=== PATIENT | male | born 1990 | race Two or more races ===

== ENCOUNTER 2019-08-20 05:01 | Day surgery (SDC) | payer BC, MEDICAID ==
[~2019-08-20] VITALS: Ht 167.6 cm; Wt 86.6 kg
[2019-08-20 05:30] VITALS: BP 142/99
[2019-08-20 06:24] LABS: BASOPHILS # (AUTO) 0.1 /CMM (0.0-0.2); BASOPHILS % (AUTO) 0.6 % (0.0-2.0); EOSINOPHILS % (AUTO) 2.5 % (0.0-6.0); HEMATOCRIT 46 % (39-51); HEMOGLOBIN 15.8 g/dL (13.5-17.5); LYMPHOCYTES # (AUTO) 2.4 /CMM (0.8-4.8); LYMPHOCYTES % (AUTO) 28.2 % (20.0-44.0); MEAN CORPUSCULAR HGB CONC 34 g/dl (31.0-36.0); MEAN CORPUSCULAR VOLUME 87 fL (80-96); MONOCYTES # (AUTO) 0.7 /CMM (0.1-1.30); MONOCYTES % (AUTO) 8.3 % (2.0-12.0); NEUTROPHILS # (AUTO) 5.1 /CMM (1.8-8.9); NEUTROPHILS % (AUTO) 60.4 % (43.0-81.0); PLATELET COUNT (AUTO) 245 /CMM (150-450); RED BLOOD CELL COUNT(AUTO) 5.34 MIL/uL (4.5-6.0); WHITE BLOOD COUNT (AUTO) 8.5 K/uL (4.3-11.0)
--- NOTE | 2019-08-20 06:35 | NUR ---
RN Notes Admitted patient from home for scheduled surgery at 0700, ORIF of left long finger proximal phalanx fracture. Patient alert and oriented x4. Vital signs stable, afebrile. NPO since last night at 1900. Denies any pain and discomfort. Unable to assess left hand, covered with dressing. Peripheral IV started on right forearm with gauge 18 with good blood return. Plan of care discussed with the patient and verbalized understanding. Picked up for OR in stable condition. Will endorse accordingly.
[2019-08-20 06:37] LABS: APPEARANCE,URINE SL CLOUDY (CLEAR); BILIRUBIN,URINE NEGATIVE (NEGATIVE); BLOOD, URINE TRACE Ery/uL (NEGATIVE); COLOR,URINE YELLOW (YELLOW); KETONES,URINE NEGATIVE (NEGATIVE); LEUKOCYTE ESTERASE ,URINE NEGATIVE (NEGATIVE); NITRITE, URINE NEGATIVE (NEGATIVE); PROTEIN,URINE NEGATIVE (NEGATIVE); UGLUCOSE NEGATIVE (NEGATIVE); UROBILINOGEN,URINE 0.2 EU/dL (0.2)
[2019-08-20 06:42] LABS: ALBUMIN 4.3 g/dL (3.4-5.0); BILIRUBIN,TOTAL 0.5 mg/dL (0.2-1.0); CALCIUM, SERUM 8.8 mg/dL (8.5-10.1); CREATININE 0.9 mg/dL (0.6-1.3); POTASSIUM 3.6 mmol/L (3.5-5.1); TOTAL PROTEIN, SERUM 7.9 g/dL (6.4-8.2)
[2019-08-20] MEDS ORDERED: ANESTHESIA TRAY IN PYXIS 1 EA TRAY MC ONE (06:49)
[2019-08-20] MEDS ORDERED: LIDOCAINE HCL/PF 1% 30 ML SDV ONE (06:49)
[2019-08-20] MEDS ORDERED: BACITRACIN 50000 UNITS/VIAL ONE (06:49)
[2019-08-20] MEDS ORDERED: MIDAZOLAM HCL 2 MG/2ML VIAL ONE (06:56)
[2019-08-20] MEDS ORDERED: HYDROMORPHONE INJ 2 MG/ML DISP.SYRIN ONE (06:56)
[2019-08-20 07:11] LABS: BACTERIA,URINE Few /HPF (None Seen); SQUAMOUS EPITHELIAL CELL,UR Rare /HPF (None Seen)
[2019-08-20 07:12] LABS: RBC,URINE 0-2 /HPF (0-2)
[2019-08-20] MEDS ORDERED: LABETALOL HCL IV 100MG VIAL ONE (07:59)
[2019-08-20 09:00] VITALS: BP 164/100
--- NOTE | 2019-08-20 09:15 | NUR ---
MS RN NOTES RECEIVED PT FROM RECOVERY. PT A/O X4. PT TOLERATING RA, WITH NO ACUTE RESPIRATORY DISTRESS NOTED. PT HAS DRESSING TO LEFT HAND, DRY AND INTACT. PER RR NURSE THEY REINFORCED IT DUE TO BLOOD FROM THE DREESING AND SURGEON/DR PANG WAS AWARE AND OKAY WITH IT. ICE PACK IS APPLIED AND HAND KEPT ELEVATED. PT DENIES ANY PAIN OR DISCOMFORT AT THE MOMENT. PT KEPT COMFORTABLE. CALL LIGHT KEPT WITHIN REACH. PT'S BED IN LOWEST, LOCKED POSITION WITH SRX3. WILL CONTINUE TO MONITOR. VS RECORDED.
[2019-08-20] MEDS ORDERED: ERGO500040 PO (10:24)
[2019-08-20] MEDS ORDERED: AMLO5TAB9 PO (10:24)
[2019-08-20] MEDS ORDERED: ATOR20TA PO (10:24)
--- NOTE | 2019-08-20 10:30 | NUR ---
MS RN NOTES HOSPITALIST/LW MADE AWARE OF PT'S SITUATION. MD/BIRD PAGED REGARDING BP RESULT. NO RESPONSE UP TO THIS MOMENT. LEATHER SEASONER/COURY MADE AWARE AND GOT ORDERS. WILL CONTINUE TO MONITOR.
[2019-08-20] MEDS ORDERED: HYDROCODONE/APAP 10/325MG 1 EA TABLET PO PRN (11:00)
[2019-08-20] MEDS ORDERED: HYDROCODONE/APAP 5/325MG 1 EACH TABLET PO PRN (11:00)
[2019-08-20] MEDS ORDERED: AMLODIPINE BESYLATE 5 MG TABLET PO ONE (11:00)
[2019-08-20 11:12] VITALS: BP 160/100
--- NOTE | 2019-08-20 14:48 | NUR ---
MS BORDER PATROL AGENT NOTES PT TO DISCHARGE HOME. PT A/OX4, AMBULATORY. PT TOLERATING RA, WITH NO ACUTE RESPIRATORY DISTRESS NOTED. PT DENIES ANY PAIN OR DISCOMFORT AT THE TIME OF DISCHARGE. PT'S BP STABILIZED AND RECORDED. PT DENIES ANY CONCERN AND QUESTIONS AT THE TIME WELL. PT PROVIDED 'S OFFICE NUMBER FOR FOLLOW UP. DISCHARGE INSTRUCTIONS REVIEWED AND SIGNED BY PT. ALL BELONGINGS WITH THE PT, INVENTORY LIST SIGNED WELL. NO PRESCRIPTIONS GIVEN, PER PT HE HAD ONE THAT HE THINKS HE LOST IT.MARIA L/[facility] MADE AWARE AND ADVISED JUST TO CALL THEIR OFFICE FOR PRESCRIPTION. DRESSING TO LEFT HAND, REINFORCED, DRY AND INTACT. PIV TO RFA G18, REMOVED. ALL NEEDS AND CARE PROVIDED. PT LEFT THE UNIT AT 1445, AMBULATORY WITH MOTHER.
== END 2019-08-20 14:00 | disposition home or self-care (01) ==
LOC: DS 05:01 → UNDOADMIN 05:03 → MED 05:03 → DS 14:00 → UNDODISIN 14:55
PROVIDERS: ATTEND Specialist
DX: S62.613A Displaced fracture of proximal phalanx of left middle finger, initial encounter for closed fracture (principal); I10 Essential (primary) hypertension; X58.XXXA Exposure to other specified factors, initial encounter; Y93.89 Activity, other specified; Y92.89 Other specified places as the place of occurrence of the external cause; Y99.8 Other external cause status
CPT/HCPCS: 26735; 36415; 80053; 81001; 85025; 85730; 87081; J0690; J1100; J1170; J1885; J2250; J2405; J2704; J3490 ×2; 81000-TC; G0378